=== PATIENT | male | born 1965 | race Caucasian/White ===

== ENCOUNTER 2022-04-17 08:11 | Outpatient (CLI) | payer OTHER, SELFPAY ==
--- NOTE | ~2022-04-17 | US_ITS ---
EXAMINATION: US arterial ankle brachial ind DATE: 04/17/2022 09:07 INDICATION: Other specified symptoms and signs involving the circulatory system. Peripheral vascular disease risk factors of hypercholesterolemia and smoking. TECHNIQUE: Segmental pressures and plethysmographic and Doppler waveforms of the brachial and lower e xtremity arteries were obtained. COMPARISON: None. FINDINGS: Right and left brachial artery pressures of 127 mm Hg and 115 mm Hg, respectively, are concordant (no rmal difference <= 30 mmHg). The right ankle-brachial index (NANCY) is 1.16 (normal >= 0.9-1.0). The right great toe-brachial index (TBI) is 0.61 (normal >= 0.65). Arterial Doppler waveforms are triphasic with brisk systolic upstroke s at both right posterior tibial and dorsalis pedis arteries. The left NANCY is 1.28. The left TBI is 0.59. Arterial Doppler waveforms are triphasic with brisk systo lic upstrokes at both left posterior tibial and dorsalis pedis arteries. IMPRESSION: 1. Mild arterial occlusive disease to the bilateral lower limbs with normal bilateral ABIs but mildly decreased bilateral TBIs Reviewed, dictated and finalized at location [facility]. [facility] IMPRESSION: 1. Mild arterial occlusive disease to the bilateral lower limbs with normal ailin ateral ABIs but mildly decreased bilateral TBIs
== END 2022-04-17 08:12 | disposition home or self-care (01) ==
PROVIDERS: PCP Family Medicine; Visit Provider Nurse Practitioner
DX: R09.89 Other specified symptoms and signs involving the circulatory and respiratory systems (principal); I73.9 Peripheral vascular disease, unspecified
CPT/HCPCS: 93922

== ENCOUNTER 2024-08-16 01:22 | Day surgery (SDC) | payer OTHER, SELFPAY ==
--- OUTSIDE RECORDS SUMMARY | 2024-08-16 01:26 | XMS_ITS | Clinical Summary ---
Author Organization [facility] Address [address] [place] [id number] Phone Care Team Providers Care Transfer Knitter Name Role Phone Riddhi Zaldivar MD Primary Care Provider Allergies No known active allergies Medications atorvastatin (LIPITOR) 20 MG tablet 1 daily 0 05/03/2016 Active lisinopril (PRINIVIL) 40 MG tablet TAKE 1 TABLET BY MOUTH 1 TIME EVERY DAY 90 tablet 3 01/29/2022 Active Active Problems Problem Noted Date Diagnosed Date Persistent proteinuria 05/06/2016 Essential (primary) hypertension 05/06/2016 Snoring 05/06/2016 Immunizations Immunization Administration Dates Next Due Influenza TIV (IM) 01/10/2021,02/02/2020 Family History Medical History Relation Comments Kidney disease Neg Hx Kidney stone Neg Hx Social History Tobacco Use Types Packs/Day Years Used Date Smoking Tobacco: Light Smoker Smokeless Tobacco: Never Alcohol Use Standard Drinks/Week Comments Yes 0 (1 standard drink = 0.6 oz pur e alcohol) rare Sex and Gender Information Value Date Recorded Sex Assigned at Not on file Legal Sex Male 9:31 AM MST Gender Identity Not on file Sexual Orientation Not on file Last Filed Vital Signs Vital Sign Reading Time Taken Comments Blood Pressure 132/72 03/26/2021 8:57 AM [employer] Pulse 72 03/26/2021 8:57 AM [employer] Temperature 36.6 C (97.9 F) 03/26/2021 8:57 AM [employer] Respiratory Rate 18 05/06/2016 12:01 AM [employer] Oxygen Saturation - - Inhaled Oxygen Concentration - - Weight 113 kg (249 lb) 03/26/2021 8:57 AM [employer] Height 190.5 cm (6' 3 ) 03/26/2021 8:57 AM [employer] Body Mass Index 31.12 03/26/2021 8:57 AM [employer] Plan of Treatment Health Maintenance Due Date Last Done Comments Influenza Vaccine (Season Ended) 2024 01/11/20 21, 02/02/2020 Insurance [facility] [place] [address] Care Teams Transfer Knitter Relationship Specialty Start Date End Date Riddhi Zaldivar MD [address] [place] [address] PCP - General Internal Medicine 03/14/20
[2024-08-16 13:39] VITALS: BP 120/73; PULSE 82; TEMP 36.4; O2SAT 99
--- NOTE | 2024-08-16 13:41 | P.PNAN_ITS ---
Anes - Initial Pre Proc Eval Procedure: Operation Date: 08/16/24 14:30 Proposed Procedures p Screening Colonoscopy - John Lucero MD Date/Time: 08/16/24 13:41 Surgeon: John Lucero MD Pre Op Diagnosis: Encounter for screening for malignant neoplasm of Patient Data Age: 59 Gender: M Height: 1.91 m Weight: 103.6 kg Last Vital Signs Temp 36.4 C 08/16/24 13:39 Pulse 82 08/16/24 13:39 BP 120/73 08/16/24 13:39 Pulse Ox 99 08/16/24 13:39 O2 Del Method Room Air 08/16/24 13:39 Allergies Allergy/AdvReac Type Severity Reaction Status Date / Time No Known Allergies Allergy Mild Verified 08/16/24 13:38 Home Medications ?Medication ?Instructions ?Recorded ?Confirmed ?Type lisinopril 40 mg tablet 40 mg PO DAILY #90 tabs 11/28/23 08/16/24 Rx atorvastatin 20 mg tablet 20 mg PO DAILY #90 tabs 08/11/24 08/16/24 Rx Patient hx anesthesia problems: none Family hx anesthesia problems: none Results Review: All pre-operative results and documents have been reviewed as part of the pre- operative evaluation. [facility] Past Medical History Medical History Proteinuria Follows with Dr Bautista Right shoulder pain Right wrist pain Essential hypertension Hyperlipidemia Surgical History Surgical History H/O colonoscopy with polypectomy (~09/12/17) george Roberts in 5 yrs History of placement of ear tubes (~1975) Family History Family History Father Family history of emphysema Other Family history of Alzheimer's disease Family history of rheumatoid arthritis Family history of thyroid disease Social History Social History (Updated 08/16/24 @ 13:41 by Roman Jimenes MD) Smoking packs per day: 0.5 Smoking cigarettes per day: 10.0 Smoking status: Former smoker Smoking end date: 04/28/09 Alcohol intake: current Substance use: never Substance use type: does not use Do You Feel Safe in your Home?: Yes Lack of Transportation: No Lack of Food: Never True Current Housing: I Have Housing Concerned About Future Housing: No Difficulty Paying Gas/Electric Bills: No Difficulty Paying for Meds: No Currently Unemployed: No Education: Master's Degree or Higher Difficulty w/ Childcare or Family Care: No Living arrangements: with family Occupation/Education: occupation Gender identity (if verbalized by the patient): Male Agree to blood products: Yes Anes - Eval Final PreProcedure Day of Procedure 08/16/24 13:41 Patient weight: obese Heart: regular rate and rhythm Lungs: clear to auscultation Airway: Mallampati scale class II Neurological: alert and oriented Last oral intake: >/= 8 hours ASA classification: III Emergent: no Anesthetic plan: proceed Anesthesia type and monitoring: general GIVS and standard monitoring Results Review: All pre-operative results and documents have been reviewed as part of the pre- operative evaluation. Informed Consent: The patient's anesthetic plan and its attendant risks and benefits were discusse d with the patient/family/POA. Questions were solicited and answers provided to the satisfaction of the patient/family/POA.
[2024-08-16] MEDS: LACTATED RINGERS 1,000 ML 150 ML IV CONT (13:47)
--- NOTE | 2024-08-16 15:28 | PM.HPGS ---
History of Present Illness History of Present Illness Consent: Risks, benefits, and alternatives have been discussed and questions answered. Patient agrees to proceed with procedure. Chief complaint: Encounter for screening for malignant neoplasm of Narrative: Camilo Rose is a 59 year old male with colon polyp in 2018 Review of Systems Review of Systems: All systems reviewed & are unremarkable except as noted in HPI and below PMFSH Past Medical History Medical History (Updated 08/16/24 @ 15:29 by John Lucero MD) Colon polyp Proteinuria Follows with Dr Bautista Right shoulder pain Right wrist pain Essential hypertension Hyperlipidemia Surgical History Surgical History H/O colonoscopy with polypectomy (~09/12/17) Dr Hightower, repeat in 5 yrs History of placement of ear tubes (~1975) Family History Family History Father Family history of emphysema Other Family history of Alzheimer's disease Family history of rheumatoid arthritis Family history of thyroid disease Social History Social History (Updated 08/16/24 @ 13:41 by Roman Jimenes MD) Smoking packs per day: 0.5 Smoking cigarettes per day: 10.0 Smoking status: Former smoker Smoking end date: 04/28/09 Alcohol intake: current Substance use: never Substance use type: does not use Do You Feel Safe in your Home?: Yes Lack of Transportation: No Lack of Food: Never True Current Housing: I Have Housing Concerned About Future Housing: No Difficulty Paying Gas/Electric Bills: No Difficulty Paying for Meds: No Currently Unemployed: No Education: Master's Degree or Higher Difficulty w/ Childcare or Family Care: No Living arrangements: with family Occupation/Education: occupation Gender identity (if verbalized by the patient): Male Agree to blood products: Yes Meds Home Medications and Allergies Home Medications ?Medication ?Instructions ?Recorded ?Confirmed ?Type lisinopril 40 mg tablet 40 mg PO DAILY #90 tabs 11/28/23 08/16/24 Rx atorvastatin 20 mg tablet 20 mg PO DAILY #90 tabs 08/11/24 08/16/24 Rx Allergies Allergy/AdvReac Type Severity Reaction Status Date / Time No Known Allergies Allergy Mild Verified 08/16/24 13:38 Vital Signs Vital Signs - 24 hr 08/16/24 13:39 Temperature 97.6 F Pulse Rate 82 Blood Pressure 120/73 Pulse Oximetry 99 Oxygen Delivery Room Air Exam Const: General: comfortable and no acute distress HENMT: Face/Nose/Sinus: Normal nares present Eyes: General: appearance normal, both eyes and all related structures Neck: Neck: no JVD Resp: Auscultation: clear to auscultation bilaterally Cardio: Rate: regular rate Rhythm: regular rhythm GI: Inspection: non-distended GI Palp: Yes Soft to palpation Skin: General skin exam: normal color Neuro: Speech: normal speech Extrem: General: normal to inspection Psych: Mental Status: mental status grossly normal Assessment and Plan Assessment and plan (1) Colon polyp: Code(s): K63.5 - Polyp of colon Status: Acute Assessment and Plan: colonoscopy
[2024-08-16 15:45] VITALS: BP 107/70; PULSE 76; RESP 21; O2SAT 98
[2024-08-16 15:55] VITALS: BP 102/63; PULSE 74; RESP 27; O2SAT 99
[2024-08-16 16:05] VITALS: BP 122/83; PULSE 73; RESP 27; O2SAT 100
== END 2024-08-16 16:10 | disposition home or self-care (01) ==
PROVIDERS: PCP Family Medicine; Referring Provider Nurse Practitioner Family; Visit Provider Internal Medicine Gastroenterology
PROC: 0DJD8ZZ Inspection of Lower Intestinal Tract, Via Natural or Artificial Opening Endoscopic (ICD-10-PCS; CPT 45378; principal; 2024-08-16 14:30)
DX: Z12.11 Encounter for screening for malignant neoplasm of colon (principal); D12.2 Benign neoplasm of ascending colon; D12.3 Benign neoplasm of transverse colon; K62.1 Rectal polyp; K57.30 Diverticulosis of large intestine without perforation or abscess without bleeding; K64.8 Other hemorrhoids; E66.9 Obesity, unspecified; Z68.28 Body mass index [BMI] 28.0-28.9, adult
CPT/HCPCS: 45385; 88305; J2003; J2704; J7120